=== PATIENT | male | born 1940 | race Caucasian/White ===

== ENCOUNTER 2018-12-29 01:41 | Emergency (ER) | payer MEDICARE ==
[~2018-12-29] VITALS: Ht 172.7 cm; Wt 95.3 kg
[2018-12-29 01:41] VITALS: BP_SYST 144
[2018-12-29] MEDS ORDERED: LOSA50TA3 PO (01:57)
[2018-12-29] MEDS ORDERED: METF-381 PO (01:57)
[2018-12-29] MEDS ORDERED: FAMO-132 PO (01:57)
[2018-12-29] MEDS ORDERED: SIMV20TA2 PO (01:57)
[2018-12-29] MEDS ORDERED: GLIP2.5T3 PO (01:57)
[2018-12-29] MEDS ORDERED: NITROGLYCERIN 1 INCH (GM) OINT. TD ONE (02:00)
[2018-12-29 02:30] LABS: HEMATOCRIT 35.4 % (36-54); HEMOGLOBIN 11.9 g/dL (14.0-18.0); LYMPHOCYTES % (AUTO) 42.4 % (20.5-51.5); MEAN CORPUSCULAR HEMOGLOBIN 31 pg (27-31); MEAN CORPUSCULAR HGB CONC 34 % (32-36); MEAN CORPUSCULAR VOLUME 92 fL (79.0-98.0); MONOCYTES % (AUTO) 10.4 % (1.7-9.3); NEUTROPHILS % (AUTO) 41.3 % (40.0-70.0); PLATELET COUNT (AUTO) 153 K/uL (130-430); RED BLOOD CELL COUNT(AUTO) 3.83 MIL/uL (4.2-6.2); RED CELL DISTRIBUTION WIDTH 13.3 % (9.0-15.0); WHITE BLOOD COUNT (AUTO) 4.6 K/uL (4.8-10.8)
[2018-12-29 02:31] LABS: BASOPHILS % (AUTO) 0.6 % (0.0-2.0); EOSINOPHILS # (AUTO) 0.2 K/uL (0.0-0.4); EOSINOPHILS % (AUTO) 5.3 % (0.0-4.0); MONOCYTES # (AUTO) 0.5 K/uL (0.0-1.0); NEUTROPHILS # (AUTO) 1.9 K/uL (1.8-7.7)
[2018-12-29 02:32] LABS: ANION GAP 10 (5-15); CALCIUM 9.1 mg/dL (8.4-11.0); CHLORIDE 101 mmol/L (98-107); CREATININE 1.22 mg/dL (0.55-1.30); GLUCOSE 235 mg/dL (70-99); SODIUM SERUM 138 mmol/L (136-145); UREA NITROGEN, BLOOD 26 mg/dL (8-21)
[2018-12-29 02:37] LABS: INR 0.9 (0.80-1.20); PROTHROMBIN TIME 9.4 SECS (9.5-12.5)
[2018-12-29 02:39] LABS: ALANINE AMINOTRANSFERASE 69 U/L (12-78); ALBUMIN 3.6 g/dL (3.4-4.8); ASPARTATE AMINOTRANSFERASE 28 U/L (10-37); TOTAL BILIRUBIN 0.2 mg/dL (0.0-1.0)
[2018-12-29] MEDS ORDERED: ENOXAPARIN SODIUM 100 MG/ML SYRINGE SUBCUT ONE (03:15)
[2018-12-29 04:42] VITALS: BP_SYST 108
== END 2018-12-29 04:42 | disposition short-term general hospital (02) ==
LOC: SED 01:41
DX: I20.9 Angina pectoris, unspecified (principal); R79.89 Other specified abnormal findings of blood chemistry; E11.9 Type 2 diabetes mellitus without complications; I10 Essential (primary) hypertension; Z88.0 Allergy status to penicillin; Z88.2 Allergy status to sulfonamides; Z88.4 Allergy status to anesthetic agent; Z79.899 Other long term (current) drug therapy
CPT/HCPCS: 36415; 71045; 80053; 82550; 83880; 84484; 85025; 85610; 85730; 93005; 96372; 99285; J1650

== ENCOUNTER 2019-01-12 19:02 | Emergency (ER) | payer MEDICARE ==
[~2019-01-12] VITALS: Ht 170.2 cm; Wt 90.7 kg
[~2019-01-12 19:02] MED LIST: FAMO-132 PO; GLIP2.5T3 PO; LOSA50TA3 PO; METF-381 PO; SIMV20TA2 PO
[2019-01-12 19:05] VITALS: BP_SYST 129
[2019-01-12 19:57] LABS: HEMOGLOBIN 8.6 g/dL (14.0-18.0); MEAN CORPUSCULAR HEMOGLOBIN 32 pg (27-31); MEAN CORPUSCULAR VOLUME 92 fL (79.0-98.0); RED BLOOD CELL COUNT(AUTO) 2.73 MIL/uL (4.2-6.2); WHITE BLOOD COUNT (AUTO) 6.2 K/uL (4.8-10.8)
[2019-01-12 19:58] LABS: EOSINOPHILS % (AUTO) 3.8 % (0.0-4.0); LYMPHOCYTES % (AUTO) 26.2 % (20.5-51.5); MEAN CORPUSCULAR HGB CONC 35 % (32-36); MONOCYTES % (AUTO) 11.5 % (1.7-9.3); PLATELET COUNT (AUTO) 253 K/uL (130-430); RED CELL DISTRIBUTION WIDTH 13.5 % (9.0-15.0)
[2019-01-12 19:59] LABS: BASOPHILS % (AUTO) 0.5 % (0.0-2.0); EOSINOPHILS # (AUTO) 0.2 K/uL (0.0-0.4); LYMPHOCYTES # (AUTO) 1.6 K/uL (1.0-5.5); MONOCYTES # (AUTO) 0.7 K/uL (0.0-1.0); NEUTROPHILS # (AUTO) 3.6 K/uL (1.8-7.7)
[2019-01-12 20:02] LABS: ANION GAP 9 (5-15); CALCIUM 8.4 mg/dL (8.4-11.0); CHLORIDE 98 mmol/L (98-107); CREATININE 1.43 mg/dL (0.55-1.30); GLUCOSE 213 mg/dL (70-99); POTASSIUM 3.1 mmol/L (3.5-5.1); SODIUM SERUM 135 mmol/L (136-145); UREA NITROGEN, BLOOD 23 mg/dL (8-21)
[2019-01-12 20:06] LABS: PROTHROMBIN TIME 9.9 SECS (9.5-12.5)
[2019-01-12 20:10] LABS: ALANINE AMINOTRANSFERASE 28 U/L (12-78); ASPARTATE AMINOTRANSFERASE 27 U/L (10-37); TOTAL BILIRUBIN 0.6 mg/dL (0.0-1.0)
[2019-01-12] MEDS ORDERED: NITROGLYCERIN 1 INCH (GM) OINT. TP ONE (20:15)
[2019-01-13] MEDS ORDERED: POTASSIUM CHLORIDE 20 MEQ TAB.PRT.SR PO ONE
[2019-01-13 00:49] VITALS: BP_SYST 110
== END 2019-01-13 00:49 | disposition short-term general hospital (02) ==
LOC: SED 19:02
DX: I24.9 Acute ischemic heart disease, unspecified (principal); I31.9 Disease of pericardium, unspecified; R07.89 Other chest pain; I10 Essential (primary) hypertension; E11.9 Type 2 diabetes mellitus without complications; E78.5 Hyperlipidemia, unspecified; Z88.0 Allergy status to penicillin; Z88.2 Allergy status to sulfonamides; Z88.4 Allergy status to anesthetic agent; Z79.899 Other long term (current) drug therapy
CPT/HCPCS: 36415; 71045; 80053; 83880; 84484; 85025; 85610-TC; 85730-TC; 93005; 99285